=== PATIENT | male | born 1970 | race African-American/Black ===

== ENCOUNTER → 2017-08-16 | Day surgery (SDC) | payer OTHER ==
[~2017-08-16] MED LIST: BUPIVACAINE HCL 0.5 % INJ/PF 30 ML SDV ONE; LIDOCAINE 1% INJ-PF (10 MG/ML) 30 ML SDV ONE; METHYLPREDNISOLONE ACETATE INJ 40 MG/1 ML ML ONE
--- NOTE | 2017-08-16 14:46 | RADIOLOGY REPORT (SQ) ---
EXAM DESCRIPTION: INJECT/ASPIR HIP/SHLDR/KNEE COMPLETE DATE/TIME: 08/16/2017 1:55 pm REASON FOR STUDY: PAIN IN RIGHT SHOULDER FINDINGS: Please see combined report for performance of procedure and radiologic supervision and int erpretation. IMPRESSION: Please see combined report for performance of procedure and radiologic supervision and i nterpretation. Reading location - IP/workstation name: [id number]
--- NOTE | 2017-08-16 14:56 | RADIOLOGY REPORT (SQ) ---
EXAM DESCRIPTION: FLUORO/NEEDLE PLACEMENT COMPLETED DATE/TIME: 08/16/2017 1:55 pm REASON FOR STUDY: PAIN IN RIGHT SHOULDER COMPARISON: None. FLUOROSCOPY TIME: 0.09 minute 1 images saved to PACS. LIMITATIONS: None. PROCEDURE: SITE OF INJECTION: Right shoulder LOCALIZING CONTRAST TYPE AND DOSE: 1 mL Isovue-300 MEDICATION TYPE AND DOSE: 80 mg Depo-Medrol, 5 mL Sensorcaine, 7 mL are lidocaine Using local anesthesia and sterile technique with fluoroscopic guidance, the needle was advanced into the joint. Iodinated contrast was injected to verify intraarticular placement. This was followed by therapeutic injection of the indicated medications. The needle was removed. There were no immediat e complications. IMPRESSION: THERAPEUTIC INJECTION OF THE right shoulder JOINT ABOVE. COMMENT: Patient medication list reviewed: Yes. Quality ID [id number]: Final reports for procedures using fluoroscopy that document radiation exposure michelle bunny, or exposure time and number of fluorographic images (if radiation exposure indices are not avail able) TECHNICAL DOCUMENTATION: JOB ID: [id number] [email or web address] All Rights Reserved Reading location - IP/workstation name: [email or web address]
== END ==
LOC: RAD 13:13 → EDSTATUS 13:30
PROVIDERS: ATTEND Physician Assistant
DX: M25.511 Pain in right shoulder (principal)
CPT/HCPCS: 20610; 77002; J3490 ×2; J1020